=== PATIENT | female | born 1980 | race Caucasian/White ===

== ENCOUNTER 2018-09-24 14:24 | Outpatient (CLI) | payer BC ==
[~2018-09-24] VITALS: Ht 160 cm; Wt 88.8 kg
[2018-09-24] MEDS ORDERED: PREN-93 PO (14:51)
[2018-09-24 14:52] VITALS: BP 114/165; PULSE 70; RESP 18; Ht 160 cm; Wt 88.8 kg
--- NOTE | 2018-09-24 17:20 | TRIAGE ---
OB Triage Datetime Report Generated by CPN: 09/24/2018 17:20 Datetime: 09/24/2018 16:45 Stage of : OB Triage Maternal Assessment Level of Consciousness: Keenly Alert, Responsive Labor Evaluation Frequency: IRREGULAR Monitor Mode: External Duration (sec)2399: 60-160 Quality: Mild Resting Tone [place]: Relaxed Heart Rate FHR Baseline Rate: 135 Monitor Mode: External US Variability: Moderate 6-25 bpm Accelerations: 15X15 Decelerations: None Category: Category I Pain Assessment Pain Scale: 0 Pain Goal: 3 Membrane Status: Intact Vaginal Bleeding: None Datetime: 09/24/2018 15:45 Stage of : OB Triage Maternal Assessment Level of Consciousness: Keenly Alert, Responsive Labor Evaluation Frequency: 8UC/HR Monitor Mode: External Duration (sec)2399: 50-80 Quality: Mild Resting Tone [place]: Relaxed Heart Rate FHR Baseline Rate: 135 Monitor Mode: External US Variability: Moderate 6-25 bpm Accelerations: 15X15 Decelerations: None Category: Category I Pain Assessment Pain Scale: 0 Pain Goal: 3 Membrane Status: Intact Vaginal Bleeding: None Datetime: 09/24/2018 15:18 Vaginal Exam Dilatation (cms): 0.0 Exam By: KHEMANI Pool: Negative Nitrazine: Negative Datetime: 09/24/2018 14:49 Time of Arrival: 09/24/2018 14:19 EGA: 36.6 Arrived By: Ambulatory Arrived From: Home Chief Complaint: PT HERE C/O CRAMPS AND LEAKING SINCE YESTERDAY Movement: Present Contractions: Irregular Rupture of Membranes: Unsure Vaginal Bleeding: None Vaginal Discharge: Denies Recent Sexual Intercouse: Yes Abdominal Trauma: Not Applicable Patient Complaints: Contractions; Cramping; Back Pain Time Provider Notified: 09/24/2018 15:14 Provider Notified: ABUSLEME Initial Plan: ROM PLUS/BPP/UA/ SVE Datetime: 09/24/2018 14:46 Assessment Type: Triage Maternal Assessment Level of Consciousness: Keenly Alert, Responsive DTR's/Clonus: DTRs 2+; No Clonus Headache: Denies Blurred Vision: No Respiratory Effort: Unlabored; Regular Rhythm; Equal Expansion Breath Sounds, Left: Clear and Equal Breath Sounds, Right: Clear and Equal Nausea/Vomiting: Denies RUQ Epigastric Pain: Denies Lower Extremities Edema: None Degree: None Upper Extremities Edema: None Degree: None Facial Edema: None Fall Risk Assessment History of Falling: (0) No Secondary Diagnosis: (0) No Ambulatory Aid: (0) Bedrest/Nurse Assist IV Therapy: (0) No Gait: (0) Normal/Bedrest/Immobile Mental Status: (0) Oriented to Own Ability Fall Score: 0 Fall Risk Score Definition: No Risk: No action required Datetime: 09/24/2018 14:44 Monitor Mode: External Monitor Mode: External US
--- NOTE | 2018-09-24 17:23 | PN ---
Triage Information Date/Time Reason for visit: Uterine contractions Weeks of Gestation 36+ /Para n/a Diabetes: none Hypertention: none Objective Vital Signs Date Temp Pulse Resp B/P (MAP) Pulse Ox O2 O2 Flow FiO2 Time Delivery Rate 09/24/18 98.0 70 18 114/165 Room Air 14:52 (148) Heart Rate: 140's Contractions: None Results/Medications Results 24 hrs Laboratory Tests Test 09/24/18 14:30 09/24/18 15:20 Urine Color YELLOW Urine Clarity CLEAR Urine pH 7.0 Urine Specific [place] 1.010 Urine Ketones NEGATIVE Urine Nitrite NEGATIVE Urine Bilirubin NEGATIVE Urine Urobilinogen NEGATIVE Urine Leukocyte Esterase NEGATIVE Urine Hemoglobin NEGATIVE Urine Glucose NEGATIVE Urine Total Protein NEGATIVE Membranes Rupture NEGATIVE Disposition: Discharge Assessment/Plan Ultrasound reviewed NST reactive CX closed Precautions discussed Questions answered Follow up with provider CRISTOBAL FULLER M.D. Sep 24, 2018 17:23
== END 2018-09-24 17:26 | disposition home or self-care (01) ==
LOC: OBT 14:24 → L-D 14:24 → OBT 17:26
PROVIDERS: ATTEND Obstetrics & Gynecology
DX: O62.9 Abnormality of forces of labor, unspecified (principal); O09.513 Supervision of elderly primigravida, third trimester; Z3A.36 36 weeks gestation of pregnancy
CPT/HCPCS: 76818; 81003; 84112; G0463